=== PATIENT | male | born 1970 | race Caucasian/White ===

== ENCOUNTER 2017-10-26 10:04 | Emergency (ER) | payer OTHER ==
--- NOTE | 2017-10-26 10:12 | ER Report ---
History and Physical Time Seen By MD: 10:11 HPI/ROS 47-year-old male who presents to the emergency department approximately 4 hours after he had an episode of dizziness versus presyncope. He does not remember what he was doing at the time. He has had no recent trauma. He denies chest pain or shortness of breath. No recent illness. No nausea vomiting or diarrhea. Reports possible mild chest pain at the time of the incident, no longer has chest pain. No focal neurologic deficits. Remainder of the 14 system rev: Yes Allergies: Coded Allergies: No Known Allergies (Verified Allergy, Unknown, 10/26/17) Home Meds Reported Medications Testosterone Cypionate (TESTOSTERONE CYPIONATE) 200 Mg/1 Ml Vial, 200 MG IM Q2WK, VIAL 10/26/17 Atorvastatin Calcium (LIPITOR) 20 Mg Tablet, 1 TAB PO QDAY, TAB 10/26/17 Levothyroxine Sodium (LEVOTHYROXINE SODIUM) 75 Mcg Tablet, 75 MCG PO QDAY, TAB 10/26/17 Reviewed Nurses Notes: Yes Old Medical Records Reviewed: Yes Constitutional Physical Exam General Appearance: The patient is alert, has no immediate need for airway protection and no current signs of toxicity. Eyes: Pupils equal and round no injection. Respiratory: Chest is non tender, lungs are clear to auscultation. Cardiac: regular rate and rhythm Gastrointestinal: Abdomen is soft and non tender, no masses, bowel sounds normal. Musculoskeletal: Neck: Neck is supple and non tender. Extremities have full range of motion and are non tender. Skin: No rashes or lesions. DIFFERENTIAL DIAGNOSIS: After history and physical exam differential diagnosis was considered for chest pain including but not limited to myocardial ischemia, pericarditis pulmonary embolus, chest wall pain, pleural inflammation and pulmonary infectious causes. Medical Decision Making Data Points Laboratory Hematology Test 10/26/17 10:15 10/26/17 10:35 10/26/17 12:50 Red Blood Count 5.74 M/uL (4.00-5.60) Mean Corpuscular Volume 87.8 fL (80.0-96.0) Mean Corpuscular Hemoglobin 31.2 pg (26.0-33.0) Mean Corpuscular Hemoglobin Concent 35.6 g/dL (32.0-36.0) Red Cell Distribution Width 14.1 % (11.5-14.5) Mean Platelet Volume 9.2 fL (7.2-11.1) Neutrophils (%) (Auto) 77.5 % (39.4-72.5) Lymphocytes (%) (Auto) 15.6 % (17.6-49.6) Monocytes (%) (Auto) 6.1 % (4.1-12.4) Eosinophils (%) (Auto) 0.6 % (0.4-6.7) Basophils (%) (Auto) 0.2 % (0.3-1.4) Nucleated RBC Relative Count (auto) 0.1 /100WBC Neutrophils # (Auto) 4.4 K/uL (2.0-7.4) Lymphocytes # (Auto) 0.9 K/uL (1.3-3.6) Monocytes # (Auto) 0.4 K/uL (0.3-1.0) Eosinophils # (Auto) 0.0 K/uL (0.0-0.5) Basophils # (Auto) 0.0 K/uL (0.0-0.1) Nucleated RBC Absolute Count (auto) 0.01 K/uL Sodium Level 141 mmol/L (137-145) Potassium Level 4.2 mmol/L (3.5-5.0) Chloride Level 101 mmol/L (98-107) Carbon Dioxide Level 26 mmol/L (22-30) Blood Urea Nitrogen 16 mg/dl (9-21) Creatinine 0.90 mg/dl (0.66-1.25) Glomerular Filtration Rate Calc > 60.0 Random Glucose 105 mg/dl (75-110) Calcium Level 9.5 mg/dl (8.4-10.2) Total Bilirubin 1.4 mg/dl (0.2-1.3) Aspartate Amino Transf (AST/SGOT) 35 U/L (0-35) Alanine Aminotransferase (ALT/SGPT) 48 U/L (0-56) Alkaline Phosphatase 61 U/L (0-126) Total Protein 7.7 g/dl (6.3-8.2) Albumin 4.9 g/dl (3.5-5.0) Urine Color Colorless Urine Clarity Clear Urine pH 6.0 pH (4.8-9.5) Urine Specific [place] 1.001 Urine Protein Negative mg/dL (NEGATIVE) Urine Glucose (UA) Negative mg/dL (NEGATIVE) Urine Ketones Negative mg/dL (NEGATIVE) Urine Blood Negative (NEGATIVE) Urine Nitrite Negative (NEGATIVE) Urine Bilirubin Negative (NEGATIVE) Urine Urobilinogen Negative mg/dL (0.2-1.9) Urine Leukocyte Esterase Negative (NEGATIVE) Urine RBC None /HPF (0-2/HPF) Urine WBC None /HPF (0-5/HPF) Urine Squamous Epithelial Cells None /LPF (</=FEW) Urine Bacteria Negative /HPF (NONE-FEW) Urine Mucus None /HPF (NONE-FEW) Troponin I < 0.012 ng/ml Chemistry Test 10/26/17 10:15 10/26/17 10:35 10/26/17 12:50 White Blood Count 5.7 k/uL (4.5-11.0) Red Blood Count 5.74 M/uL (4.00-5.60) Hemoglobin 17.9 g/dL (14.0-18.0) Hematocrit 50.4 % (42.0-52.0) Mean Corpuscular Volume 87.8 fL (80.0-96.0) Mean Corpuscular Hemoglobin 31.2 pg (26.0-33.0) Mean Corpuscular Hemoglobin Concent 35.6 g/dL (32.0-36.0) Red Cell Distribution Width 14.1 % (11.5-14.5) Platelet Count 138 K/uL (150-450) Mean Platelet Volume 9.2 fL (7.2-11.1) Neutrophils (%) (Auto) 77.5 % (39.4-72.5) Lymphocytes (%) (Auto) 15.6 % (17.6-49.6) Monocytes (%) (Auto) 6.1 % (4.1-12.4) Eosinophils (%) (Auto) 0.6 % (0.4-6.7) Basophils (%) (Auto) 0.2 % (0.3-1.4) Nucleated RBC Relative Count (auto) 0.1 /100WBC Neutrophils # (Auto) 4.4 K/uL (2.0-7.4) Lymphocytes # (Auto) 0.9 K/uL (1.3-3.6) Monocytes # (Auto) 0.4 K/uL (0.3-1.0) Eosinophils # (Auto) 0.0 K/uL (0.0-0.5) Basophils # (Auto) 0.0 K/uL (0.0-0.1) Nucleated RBC Absolute Count (auto) 0.01 K/uL Glomerular Filtration Rate Calc > 60.0 Calcium Level 9.5 mg/dl (8.4-10.2) Total Bilirubin 1.4 mg/dl (0.2-1.3) Aspartate Amino Transf (AST/SGOT) 35 U/L (0-35) Alanine Aminotransferase (ALT/SGPT) 48 U/L (0-56) Alkaline Phosphatase 61 U/L (0-126) Total Protein 7.7 g/dl (6.3-8.2) Albumin 4.9 g/dl (3.5-5.0) Urine Color Colorless Urine Clarity Clear Urine pH 6.0 pH (4.8-9.5) Urine Specific [place] 1.001 Urine Protein Negative mg/dL (NEGATIVE) Urine Glucose (UA) Negative mg/dL (NEGATIVE) Urine Ketones Negative mg/dL (NEGATIVE) Urine Blood Negative (NEGATIVE) Urine Nitrite Negative (NEGATIVE) Urine Bilirubin Negative (NEGATIVE) Urine Urobilinogen Negative mg/dL (0.2-1.9) Urine Leukocyte Esterase Negative (NEGATIVE) Urine RBC None /HPF (0-2/HPF) Urine WBC None /HPF (0-5/HPF) Urine Squamous Epithelial Cells None /LPF (</=FEW) Urine Bacteria Negative /HPF (NONE-FEW) Urine Mucus None /HPF (NONE-FEW) Troponin I < 0.012 ng/ml Urinalysis Test 10/26/17 10:35 Urine Color Colorless Urine Clarity Clear Urine pH 6.0 pH (4.8-9.5) Urine Specific [place] 1.001 Urine Protein Negative mg/dL (NEGATIVE) Urine Glucose (UA) Negative mg/dL (NEGATIVE) Urine Ketones Negative mg/dL (NEGATIVE) Urine Blood Negative (NEGATIVE) Urine Nitrite Negative (NEGATIVE) Urine Bilirubin Negative (NEGATIVE) Urine Urobilinogen Negative mg/dL (0.2-1.9) Urine Leukocyte Esterase Negative (NEGATIVE) Urine RBC None /HPF (0-2/HPF) Urine WBC None /HPF (0-5/HPF) Urine Squamous Epithelial Cells None /LPF (</=FEW) Urine Bacteria Negative /HPF (NONE-FEW) Urine Mucus None /HPF (NONE-FEW) ED Course/Re-evaluation ED Course 47-year-old male with an acute episode of dizziness versus presyncope. He has no cardiac murmurs on his exam. He improved after IV fluids. He had 2 normal troponins were trended in the emergency department. No focal neurologic deficits. Not consistent with a CVA. He thinks he likely got dehydrated. This is not consistent with an infection. He will continue to drink fluids at home, and follow-up with his primary provider. Decision to Disposition Date: Oct 26, 2017 Decision to Disposition Time: 13:06 Depart Departure Latest Vital Signs Impression: Primary Impression: Dizziness Condition: Improved Disposition: HOME OR SELF-CARE Patient Instructions: Dizziness (ED) LILLIE PINEDO MD Oct 26, 2017 10:12
[2017-10-26] MEDS ORDERED: TEST200V IM (10:27)
[2017-10-26] MEDS ORDERED: LEVO75TA73 PO (10:27)
[2017-10-26] MEDS ORDERED: ATOR20TA22 PO (10:27)
[2017-10-26] MEDS ORDERED: NS(*) 0.9% 1000 ML BAG 1,000 ML IV ONE (11:15)
[2017-10-26 11:29] LABS: PLATELET COUNT, AUTOMATED 138 K/uL (150-450)
[2017-10-26] MEDS ORDERED: KETOROLAC 30 MG/ML VIAL IVP ONE (12:45)
[2017-10-26 13:22] VITALS: BP 132/82
--- NOTE | 2017-10-26 16:23 | EKG ---
FACILITY: [facility] - [place] PATIENT NAME: JASSON GUY : [id number] MR: [id number]: [id number] EXAM DATE: ORDERING PHYSICIAN: LILLIE PINEDO TECHNOLOGIST: RONNY Bazan Reason : NEURO Blood Pressure : / mmHG Vent. Rate : 067 BPM Atrial Rate : 067 BPM P-R Int : 156 ms QRS Dur : 094 ms QT Int : 406 ms P-R-T Axes : 057 -28 035 degrees QTc Int : 429 ms Normal sinus rhythm Borderline ECG No previous ECGs available Confirmed by Chevy Mahajan ([id number] on 10/26/2017 5:53:17 PM Referred By: KHRIS Confirmed By:Chevy Beasley
== END 2017-10-26 13:39 | disposition home or self-care (01) ==
LOC: ER 10:24
DX: R42 Dizziness and giddiness (principal)
CPT/HCPCS: 36415; 81001; 84484; 85025; 93005; 96361; 96374; 99284; J1885; J7030; 82040; 82247; 82310; 82374; 82435; 82565; 82947; 84075; 84132; 84155; 84295; 84450; 84460; 84520